=== PATIENT | female | born 1995 | race Caucasian/White ===

== ENCOUNTER 2017-02-03 11:23 | Emergency (ER) | payer OTHER ==
[2017-02-03 11:31] VITALS: BP 154/79
[2017-02-03] MEDS ORDERED: Ketorolac 60 MG/2 ML SDV IM ONE (11:31)
--- NOTE | 2017-02-03 11:59 | EDM.PDOC ---
ED HPI LOWER BACK PAIN/INJURY - General Chief Complaint: Back Pain or Injury Stated Complaint: lumbar pain Time Seen by Provider: 02/03/17 11:52 Source of Information: Reports: Patient History Limitations: Reports: No limitations - History of Present Illness INITIAL COMMENTS - FREE TEXT/NARRATIVE: Stood up from sitting and felt pull in low back. Having trouble getting up. Hurts to walk Symptom Onset Date: 02/03/17 Symptom Onset Time: 09:45 Location: Reports: lower Quality: Reports: Ache Severity: moderate Place of Occurrence: work Improves with: Reports: Other (sitting) Worsens with: Reports: Movement (standing and walking) Context: Reports: other (standing up) Associated Symptoms: Reports: Denies symptoms - Related Data Allergies/ADRs: Allergies Allergy/AdvReac Type Severity Reaction Status Date / Time No Known Allergies Allergy Verified 02/03/17 11:31 Home Meds: Home Meds Acyclovir [Zovirax] 800 mg PO BID PRN 02/24/16 [History] Non-Formulary Medication [NF Drug] 1 tab PO DAILY 02/03/17 [History] metFORMIN [Glucophage XR] 750 mg PO BID 02/03/17 [History] Past Medical History HEENT History: Reports: Impaired vision Genitourinary History: Reports: STD, Other (see below) Other Genitourinary History: genital herpes 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: Polycystic Ovaries Psychiatric History: Reports: Depression Endocrine/Metabolic History: Reports: Obesity/BMI 30+ Social & Family History - Tobacco Use Smoking Status *Q: Former Smoker Years of Tobacco use: 2 Packs/Tins Daily: 0.5 Used Tobacco, but Quit: Yes Month Tobacco Last Used: Quit 2 years ago Second Hand Smoke Exposure: No - Recreational Drug Use Recreational Drug Use: No ED ROS GENERAL - Review of Systems Review Of Systems: See Below Constitutional: Reports: no symptoms HEENT: Reports: No symptoms Respiratory: Reports: No Symptoms Cardiovascular: Reports: No symptoms Endocrine: Reports: no symptoms GI/Abdominal: Reports: No symptoms : Reports: no symptoms Musculoskeletal: Reports: back pain, other (lateral thigh pain bilaterally) Skin: Reports: no symptoms Neurological: Reports: No Symptoms Psychiatric: Reports: No symptoms Hematologic/Lymphatic: Reports: no symptoms Immunologic: Reports: no symptoms ED EXAM,LOWER BACK PAIN/INJURY - Physical Exam Exam: See Below Exam Limited By: No limitations General Appearance: alert, WD/WN, no apparent distress Ears: normal external exam Nose: normal inspection Throat/Mouth: Normal inspection, Normal oropharynx, No airway compromise Head: atraumatic, normocephalic Neck: normal inspection, supple, non-tender, full range of motion Respiratory/Chest: no respiratory distress, no accessory muscle use Cardiovascular: regular rate, rhythm GI/Abdominal: soft, non tender Back Exam: paraspinal tenderness (very low in back, mostly over back of pelvis) . No: CVA tenderness (L), CVA tenderness (R) Extremities: normal inspection, normal capillary refill Neurological: alert, normal mood/affect, normal dorsiflexion, CN II-XII intact, oriented x 3 Psychiatric: normal affect, normal mood Skin Exam: Warm, Dry, Intact, Normal color, No rash Lymphatic: no adenopathy Course - Vital Signs Last Recorded V/S: Last Vital Signs Temp 37.0 C 02/03/17 11:24 Pulse 94 02/03/17 11:24 Resp 22 H 02/03/17 11:24 BP 154/79 H 02/03/17 11:24 Pulse Ox 100 02/03/17 11:24 - Orders/Labs/Meds Meds: Medications Discontinued Medications Generic Name Dose Route Start Last Admin Trade Name Wang PRN Reason Stop Dose Admin Ketorolac Tromethamine 60 mg 02/03/17 11:31 02/03/17 11:38 Toradol IM 02/03/17 11:32 60 mg ONETIME ONE Administration Departure - Departure Time of Disposition: 12:06 Disposition: Home, Self-Care 01 Condition: good Clinical Impression: Low back strain Qualifiers: Encounter type: initial encounter Qualified Code(s): S39.012A - Strain of muscle, fascia and tendon of lower back, initial encounter Instructions: Back Pain, Adult, [id number] Referrals: Samanta Oswald PA-C [Primary Care Provider] - Forms: ED Department Discharge Additional Instructions: Take 2-3 advil three times a day for the next 5 days Take the flexeril as needed as a muscle relaxer. See your doctor in a week if still having problems - Problem List Review Problem List Initiated/Reviewed/Updated: No - Assessment/Plan Assessment:: Low back strain Plan: Advil and flexeril as directed
== END 2017-02-03 12:15 | disposition home or self-care (01) ==
LOC: LL.ED 11:23
DX: S39.012A Strain of muscle, fascia and tendon of lower back, initial encounter (principal); Z87.891 Personal history of nicotine dependence; X58.XXXA Exposure to other specified factors, initial encounter
CPT/HCPCS: 96372; 99283; J1885

== ENCOUNTER 2017-11-15 07:49 | Day surgery (SDC) | payer OTHER ==
[~2017-11-15 07:49] MED LIST: Lactated Ringers 1,000 ML IV SCH; Sodium Chloride 0.9% 10 ML Syringe FLUSH PRN; fentaNYL 100 MCG/2 ML SDV ONE
[2017-11-15] MEDS ORDERED: Midazolam 1 MG/ML 2 ML SDV ONE (07:50)
[2017-11-15] MEDS ORDERED: Propofol 200 MG/20 ML SDV ONE (07:50)
--- NOTE | 2017-11-15 08:13 | PCM.HPR ---
H & P Addendum review - H & P Addendum Review Date of Original H & P: 10/19/17 Date Reviewed: 11/15/17 Time Reviewed: 08:00 Patient was Examined: No Changes
[2017-11-15] MEDS ORDERED: Bupivacaine 0.25% 10 ML SDV INFILT ONE (08:31)
--- NOTE | 2017-11-15 08:53 | PCM.OPNOTE ---
- General Post-Op/Procedure Note Date of Surgery/Procedure: 11/15/17 Operative Procedure(s): L CTR Pre Op Diagnosis: L CTS Post-Op Diagnosis: Same Anesthesia Technique: Local, MAC Primary Surgeon: Julius Patrick Anesthesia Provider: Jojo Hester EBL in mLs: 0 Complications: None Condition: Good Free Text/Narrative:: Intake & Output 11/14/17 11/15/17 11/15/17 22:59 06:59 14:59 Intake Total 950 Balance 950
[2017-11-15 09:42] VITALS: BP 118/76
--- NOTE | 2017-11-15 12:41 | OR ---
Date of Procedure: 11/15/2017 PREOPERATIVE DIAGNOSIS: Left carpal tunnel syndrome. POSTOPERATIVE DIAGNOSIS: Left carpal tunnel syndrome. PROCEDURE: Left carpal tunnel release. ANESTHESIA: Local with IV sedation. PROCEDURE IN DETAIL: The patient was brought to the operating room after surgical site had been marked by myself and the patient. IV sedation was administered. Left upper extremity was exsanguinated and the tourniquet inflated. Hand was prepped with ChloraPrep and draped sterilely. A 50:50 mixture of 1% lidocaine and 0.25% Marcaine were infiltrated in the palmar crease. An incision was made over the transverse carpal ligament and extended through the palmar aponeurosis. The transverse carpal ligament was identified and sharply incised until the median nerve was visible. The ligament was split distally into the palm and proximally into the wrist. Finger palpation and inspection reveals all constricting bands to be released. Wound was irrigated and skin closed with interrupted 4-0 Prolene vertical mattress sutures. Antibiotic ointment and a bulky sterile pressure dressing were applied. The patient tolerated the procedure well and returned to recovery in stable condition. BLOOD LOSS: None. BISHNU MCKINNEY MD /[id number]
== END 2017-11-15 11:34 | disposition home or self-care (01) ==
LOC: LL.SDS 07:49
PROVIDERS: ATTEND Surgery
DX: G56.02 Carpal tunnel syndrome, left upper limb (principal); E66.01 Morbid (severe) obesity due to excess calories; Z68.43 Body mass index [BMI] 50.0-59.9, adult
CPT/HCPCS: 01810; 36415; 64721; 84703; J2250; J2704; J3010; J7120